=== PATIENT | female | born 1985 | race Caucasian/White ===

== ENCOUNTER 2016-10-21 11:58 | Emergency (ER) | payer OTHER ==
[~2016-10-21] VITALS: Ht 160 cm; Wt 77.5 kg
[2016-10-21 12:05] VITALS: Ht 160 cm; Wt 77.5 kg
[2016-10-21 12:57] LABS: URINE BLOOD (Dip) POC Negative (NEGATIVE)
[2016-10-21] MEDS ORDERED: METR500T PO (13:35)
[2016-10-21] MEDS ORDERED: NITR-58 PO (13:36)
[2016-10-21] MEDS ORDERED: AZITHROMYCIN 250 MG TAB PO ONE (14:00)
[2016-10-21] MEDS ORDERED: CEFTRIAXONE 250 MG INJ IM ONE (14:00)
[2016-10-21 14:15] VITALS: BP 120/58; PULSE 75; RESP 18; TEMP 98
--- NOTE | 2016-10-21 14:45 | ERD ---
ER Documentation Chief Complaint Date/Time DATE: 10/21/16 TIME: 14:34 Chief Complaint dysuria x 3 days HPI This is a 30-year-old female that presents to the ER with foul-smelling vaginal discharge for the last 3 weeks. Patient has been trying to treat it with over- the-counter Monistat and her roommate antibiotics. She does not know which antibiotics these are. Patient denies any urinary frequency or dysuria. Patient states she is in a monogamous relationship with her boyfriend, however does not use any condoms. Patient has mild pelvic pain. She denies any pain with sexual intercourse. Denies any fevers or chills. She denies any abdominal pain. Patient has past medical history of hepatitis C. ROS 12 point review of systems was done, all negative except per HPI. Medications Home Meds Active Scripts Nitrofurantoin Monohyd Macrocr* (Macrobid*) 100 Mg Capsr, 100 MG PO BID for 7 Days, CAP Prov:CECILIO,PADMA C 10/21/16 Metronidazole* (Flagyl*) 500 Mg Tablet, 500 MG PO TID for 7 Days, TAB Prov:CECILIO,PADMA C 10/21/16 Allergies Allergies: Coded Allergies: No Known Drug Allergy (Verified Allergy, Mild, 11/23/13) PMhx/Soc History of Surgery: Yes (, 5 years ago) Anesthesia Reaction: No Hx Neurological Disorder: No Hx Respiratory Disorders: No Hx Cardiac Disorders: No Hx Psychiatric Problems: No Hx Miscellaneous Medical Probl: No Hx Alcohol Use: No Hx Substance Use: Yes (hrion) Hx Tobacco Use: No Physical Exam Vitals Vital Signs Date Time Temp Pulse Resp B/P Pulse Ox O2 Delivery O2 Flow Rate FiO2 10/21/16 12:05 98.0 76 18 118/58 96 Physical Exam GENERAL: The patient is well developed and appropriate for usual state of health , in no apparent distress. HEENT: Atraumatic. CHEST: Clear to auscultation bilaterally. There are no rales, wheezes or rhonchi. HEART: Regular rate and rhythm. No murmurs, clicks, rubs or gallops. : there is a small amount of yellow foul smelling vaginal discharge. no lesions or sores. no cervical motion tenderness NEURO: Alert and oriented. SKIN: The skin is warm and dry. Results 24 hrs Laboratory Tests Test 10/21/16 12:59 Bedside Urine pH (LAB) 6.5 Bedside Urine Protein (LAB) Trace Bedside Urine Glucose (UA) Negative Bedside Urine Ketones (LAB) Negative Bedside Urine Blood Negative Bedside Urine Nitrite (LAB) Negative Bedside Urine Leukocyte Esterase (L 1+ Current Medications Medications (Trade) Dose Ordered Sig/Josy Route PRN Reason Start Time Stop Time Status Last Admin Dose Admin Ceftriaxone Sodium (Rocephin) 250 mg ONCE ONCE IM 10/21/16 14:00 10/21/16 14:01 DC 10/21/16 14:07 Azithromycin (Zithromax) 1,000 mg ONCE ONCE PO 10/21/16 14:00 10/21/16 14:01 DC 10/21/16 14:07 Procedures/MDM This is a 30-year-old female presents to the ER with vaginal discharge for the last 3 weeks. Differential diagnosis includes but is not limited to chlamydia, gonorrhea, urinary tract infection, pyelonephritis, pelvic inflammatory disease , tubo-ovarian abscess, bacterial vaginosis. Patient did have foul-smelling vaginal discharge on physical examination likely bacterial vaginosis treated with metronidazole. Patient was also treated for chlamydia and gonorrhea as patient does not use condoms with her partner. Urine was sent for testing. Patient was found to have a urinary tract infection will be treated with Macrobid. At this time suspicion for pelvic inflammatory disease or ovarian torsion, patient does not have significant pelvic pain and does not have any cervical motion tenderness on physical examination. She is afebrile and well- appearing. Patient is to follow-up with her primary care doctor within 1-2 days return to ER sooner if symptoms worsen.My Medical decision making shared with the patient she understands and agrees with plan. Departure Diagnosis: Primary Impression: UTI (urinary tract infection) Additional Impression: BV (bacterial vaginosis) Condition: Stable Patient Instructions: Understanding Urinary Tract Infections (UTIs) Additional Instructions: Call your primary care doctor TOMORROW for an appointment during the next 1-2 days.See the doctor sooner or return here if your condition worsens before your appointment time. PADMA HERNANDES October 21, 2016 14:45
== END 2016-10-21 14:15 | disposition home or self-care (01) ==
LOC: FTE 11:58
DX: N39.0 Urinary tract infection, site not specified (principal); N76.0 Acute vaginitis; R10.2 Pelvic and perineal pain
CPT/HCPCS: 81003; 96372; J0696; Z7502; Z7610

== ENCOUNTER 2017-04-14 19:39 | Outpatient (CLI) | payer OTHER ==
[~2017-04-14] VITALS: Ht 165.1 cm; Wt 73.7 kg
[~2017-04-14 19:39] MED LIST: METR500T PO; NITR-58 PO
[2017-04-14 20:18] VITALS: Ht 165.1 cm; Wt 73.7 kg
[2017-04-14 20:19] VITALS: BP 112/65; PULSE 88; RESP 16
[2017-04-14] MEDS ORDERED: PREN1TAB13 PO (21:11)
--- NOTE | 2017-04-15 00:24 | PN ---
Triage Information Date/Time Reason for visit: foul odor vaginal discharge Weeks of Gestation 20weeks /Para A2(x1sab x1ia) Diabetes: none Hypertention: none Additional information Recurent UTI x3 already with this demanding metrogel for foul odor vaginal discharge , she already used prior to this visit Objective Vital Signs Date Time Temp Pulse Resp B/P Pulse Ox O2 Delivery O2 Flow Rate FiO2 04/14/17 20:19 98.2 88 16 112/65 Room Air Heart Rate: 140's Contractions: None Exam vaginal swab sent for vaginitis Disposition: Discharge Assessment/Plan IUP 20w ?BV Rx cleocin 2% vag cream qHS for 7days YOBANI BEAL MD Apr 15, 2017 00:24
--- NOTE | 2017-04-15 01:01 | TRIAGE ---
OB Triage Datetime Report Generated by CPN: 04/15/2017 01:00 Datetime: 04/14/2017 20:57 Labor Evaluation Contraction Comments: PT REFUSING TO HAVE TOCO MONITOR ON. STATES THAT SHE DOES NOT FEEL ANY CRAMP ING OR PAIN AT THIS TIME Datetime: 04/14/2017 20:16 Heart Rate Monitor Mode: Doppler Comments: FHT AT 145 WITH AUDIBLE ACCELERATIONS. Datetime: 04/14/2017 20:12 Comments: UNABLE TO MONITOR BABY ON DUE TO GESTATIONAL AGE. MONITOR REMOVED. Datetime: 04/14/2017 20:06 EGA: 20.0 Datetime: 04/14/2017 20:03 Comments: PT ON MONITOR. SEARCHING FOR CONTINOUS TRACING OF FHR. AUDIBLE HEART TONES HEARD Datetime: 04/14/2017 19:31 Time of Arrival: 04/14/2017 19:31 Arrived By: Ambulatory Arrived From: Home Chief Complaint: CRAMPING AND ODOROUS VAGINAL DISCHARGE Movement: Present Contractions: Denies/Absent Time Contractions Began: 04/14/2017 17:30 Rupture of Membranes: Denies Vaginal Bleeding: None Vaginal Discharge: Present Recent Sexual Intercouse: Denies Abdominal Trauma: Not Applicable Patient Complaints: Cramping; Other Provider Notified: LIAN Initial Plan: URINE CULTURE
--- NOTE | 2017-04-15 01:02 | TRIAGE ---
OB Triage Datetime Report Generated by CPN: 04/15/2017 01:02 Datetime: 04/14/2017 20:07 Level of Consciousness: Fully Conscious DTR's/Clonus: DTRs 2+; No Clonus Headache: Denies Blurred Vision: No Respiratory Effort: Unlabored; Regular Rhythm; Equal Expansion RUQ Epigastric Pain: Denies Datetime: 04/14/2017 19:31 Time Provider Notified: 04/14/2017 20:43
== END 2017-04-14 21:24 | disposition home or self-care (01) ==
LOC: L-D 19:39 → OBT 19:39
PROVIDERS: ATTEND Obstetrics & Gynecology
DX: O26.892 Other specified pregnancy related conditions, second trimester (principal); Z3A.20 20 weeks gestation of pregnancy; N89.8 Other specified noninflammatory disorders of vagina; Z87.440 Personal history of urinary (tract) infections
CPT/HCPCS: 87086; Z7500; G0463